=== PATIENT | female | born 1985 | race Caucasian/White ===

== ENCOUNTER 2017-09-29 15:15 | Emergency (ER) | END 2017-09-30 00:42 | disposition home or self-care (01) ==

== ENCOUNTER 2017-10-14 19:02 | Emergency (ER) | END 2017-10-15 00:22 | disposition home or self-care (01) ==

== ENCOUNTER 2018-06-13 10:42 | Emergency (ER) | END 2018-06-13 14:49 | disposition home or self-care (01) ==